=== PATIENT | female | born 1980 | race Caucasian/White ===

== ENCOUNTER 2019-04-23 14:40 | Outpatient (CLI) | payer BC, SELFPAY ==
[2019-04-23 15:34] LABS: INR 1.1 (0.9-1.1); PTT Activated 26.4 sec (21.0-31.4); Prothrombin Time 10.9 sec (9.3-11.0)
== END 2019-04-23 15:00 ==
PROVIDERS: PCP Family Medicine; Visit Provider Family Medicine
DX: Z01.812 Encounter for preprocedural laboratory examination (principal)
CPT/HCPCS: 85610; 85730